=== PATIENT | male | born 1985 | race African-American/Black ===

== ENCOUNTER 2020-10-01 17:25 | Emergency (ER) | payer BC ==
[2020-10-01 17:36] VITALS: BP 121/69; PULSE 73; RESP 20; TEMP 98
[2020-10-01] MEDS ORDERED: IBUPROFEN 800 MG TAB PO STA (17:58)
[2020-10-01] MEDS ORDERED: FAMOTIDINE 20 MG TAB PO STA (17:58)
--- NOTE | 2020-10-01 18:10 | ED ---
Headache HPI - General Chief Complaint: Headache Stated Complaint: headache Source: patient, RN notes reviewed, old records reviewed Mode of arrival: ambulatory Limitations: no limitations - History of Present Illness Initial Comments: 34-year-old black male patient, well-appearing alert and oriented 4, presents to the emergency room with complaints of a frontal sinus headache since yesterday. Patient states that his ALLERGIES have been really bad and he was outside in the heat yesterday while neighbors were farming and today he's had increasing sinus pressure and pain. He denies any fevers. No nausea vomiting or diarrhea. Patient states that this is just like his previous sinus headaches however he has taken Claritin and Tylenol with no relief. Patient states he did get some relief after taking a nap. Patient smokes less than a quarter pack a day. He has an appointment with his primary care doctor Dr. Shaikh tomorrow. this is not the worst headache of his life. MD Complaint: headache -: days(s) (1) Onset Description: gradual Location: frontal Severity scale (1-10): 7 Quality: full (Pressure), similar to previous headaches (Sinus headache from ALLERGIES) Consistency: constant Improves With: rest Worsens With: other (Wearing his mask) Treatments Prior to Arrival: other (Claritin and Tylenol) - Related Data Previous Rx's Medication Instructions Recorded Cetirizine HCl [Zyrtec] 10 mg PO DAILY 30 Days #30 tab 10/01/20 Allergies Allergy/AdvReac Type Severity Reaction Status Date / Time No Known Allergies Allergy Verified 10/01/20 17:36 Review of Systems ROS Statement: Those systems with pertinent positive or pertinent negative responses have been documented in the HPI. ROS Other: All systems not noted in ROS Statement are negative. Past Medical History Past Medical History: No Reported History History of Any Multi-Drug Resistant Organisms: None Reported Past Surgical History: No Surgical Hx Reported Past Psychological History: No Psychological Hx Reported Smoking Status: Current every day smoker Past Alcohol Use History: Occasional Past Drug Use History: Marijuana General Exam Limitations: no limitations General appearance: alert, in no apparent distress Head exam: Present: atraumatic, normocephalic, normal inspection Expanded Head exam: Absent: tenderness of temporal artery, CSF rhinorrhea, CSF otorrhea Eye exam: Present: normal appearance, PERRL, EOMI. Absent: scleral icterus, conjunctival injection, nystagmus, periorbital swelling, periorbital tenderness Pupils: Present: normal accommodation ENT exam: Present: normal exam, normal oropharynx, mucous membranes moist, TM's normal bilaterally (Evidence of previous myringotomy tube), normal external ear exam Neck exam: Present: normal inspection, full ROM. Absent: tenderness, meningismus, lymphadenopathy, thyromegaly Respiratory exam: Present: normal lung sounds bilaterally. Absent: respiratory distress, wheezes, rales, rhonchi, stridor, chest wall tenderness, accessory muscle use, decreased breath sounds, prolonged expiratory Cardiovascular Exam: Present: regular rate, normal rhythm, normal heart sounds. Absent: systolic murmur, diastolic murmur, rubs, gallop, clicks GI/Abdominal exam: Present: soft, normal bowel sounds. Absent: distended, tenderness, guarding, rebound, rigid Extremities exam: Present: normal inspection, full ROM, normal capillary refill. Absent: tenderness, pedal edema, joint swelling, calf tenderness Back exam: Present: normal inspection, full ROM. Absent: tenderness, CVA tenderness (R), CVA tenderness (L), muscle spasm, paraspinal tenderness, vertebral tenderness, rash noted Neurological exam: Present: alert, oriented X3, CN II-XII intact Psychiatric exam: Present: normal affect, normal mood Skin exam: Present: warm, dry, intact, normal color. Absent: rash, cyanosis, diaphoretic, erythema, petechiae, pallor, mottled Course Vital Signs 10/01/20 17:34 Temperature 98.0 F Pulse Rate 73 Respiratory 20 Rate Blood Pressure 121/69 O2 Sat by Pulse 96 Oximetry Medical Decision Making - Medical Decision Making The patient presents with headache similar to his previous sinus headaches. He is complaining of frontal and ethmoid sinus pain and pressure. He states he takes Claritin daily however after being outside all day yesterday in the heat he is not getting the relief. He states that he took a Tylenol and a half today he believes that that did help a little bit but he still feels the pressure. Patient denies any sore throats, fever, cough or difficulty breathing. He has no visual disturbances. He denies any ear pressure or pain. He has appointment with his primary care Dr. Shaikh tomorrow. Patient offered IV fluids and Benadryl and refused states that he is well-hydrated. Patient offered a Toradol shot and states he does not want any injections. Patient agreed to take Motrin and Pepcid and to change his Claritin to Zyrtec to see if that makes a difference for him. Patient offered Flonase which he states he does not like. Patient requesting a work note for today which was provided. Case discussed with Dr. Silva and will discharge patient home to follow up with primary care doctor. Disposition Clinical Impression: Sinus headache, Environmental allergies Disposition: HOME SELF-CARE Condition: Good Instructions (If sedation given, give patient instructions): Acute Headache (ED) Prescriptions: Cetirizine HCl [Zyrtec] 10 mg PO DAILY 30 Days #30 tab Is patient prescribed a controlled substance at d/c from ED?: No Referrals: Rob Shaikh MD [Primary Care Provider] - 1-2 days Time of Disposition: 18:11
== END 2020-10-01 18:34 | disposition home or self-care (01) ==
LOC: EC 17:25
DX: R51.9 Headache, unspecified (principal); F12.90 Cannabis use, unspecified, uncomplicated; F17.200 Nicotine dependence, unspecified, uncomplicated; Z91.09 Other allergy status, other than to drugs and biological substances
CPT/HCPCS: 99283

== ENCOUNTER 2020-11-02 11:36 | Emergency (ER) | payer BC ==
[2020-11-02 11:40] VITALS: BP 140/91; PULSE 93; RESP 18; TEMP 98.3
--- NOTE | 2020-11-02 11:57 | ED ---
General Adult HPI - General Chief complaint: Back Pain/Injury Stated complaint: back injury Time Seen by Provider: 11/02/20 11:44 Source: patient Mode of arrival: wheelchair Limitations: no limitations - History of Present Illness Initial comments: 35-year-old male presents to the emergency room for chief complaint of back pain. Patient and his significant other are moving. Patient was lifting heavy objects yesterday. Patient went to lift and felt a sudden pain in his back like it spasmed up. Patient states he laid down for a little bit but then proceeded to go to work. 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 After he went to bed and woke up this morning his pain had worsened. Patient denies any bladder or bowel changes, saddle anesthesia, weakness of the legs, or fevers. Patient denies any IV drug abuse.Patient has no other complaints at this time including shortness of breath, chest pain, abdominal pain, nausea or vomiting, headache, or visual changes. - Related Data Home Medications Medication Instructions Recorded Confirmed Montelukast [Singulair] 10 mg PO DAILY 11/02/20 11/02/20 Previous Rx's Medication Instructions Recorded Cetirizine HCl [Zyrtec] 10 mg PO DAILY 30 Days #30 tab 10/01/20 Cyclobenzaprine [Flexeril] 10 mg PO TID #14 tab 11/02/20 Ibuprofen [Motrin] 600 mg PO Q6HR PRN #20 tab 11/02/20 Allergies Allergy/AdvReac Type Severity Reaction Status Date / Time No Known Allergies Allergy Verified 11/02/20 12:58 Review of Systems ROS Statement: Those systems with pertinent positive or pertinent negative responses have been documented in the HPI. ROS Other: All systems not noted in ROS Statement are negative. Past Medical History Past Medical History: No Reported History History of Any Multi-Drug Resistant Organisms: None Reported Past Surgical History: No Surgical Hx Reported Past Psychological History: No Psychological Hx Reported Smoking Status: Current every day smoker Past Alcohol Use History: Occasional Past Drug Use History: Marijuana General Exam Limitations: no limitations General appearance: alert, in no apparent distress Head exam: Present: atraumatic, normocephalic, normal inspection Eye exam: Present: normal appearance, PERRL, EOMI. Absent: scleral icterus, conjunctival injection, periorbital swelling ENT exam: Present: normal exam, mucous membranes moist Neck exam: Present: normal inspection, full ROM. Absent: tenderness, meningismus Respiratory exam: Present: normal lung sounds bilaterally. Absent: respiratory distress, wheezes Cardiovascular Exam: Present: regular rate, normal rhythm, normal heart sounds GI/Abdominal exam: Present: soft, normal bowel sounds. Absent: distended, tenderness, guarding, rebound, rigid Back exam: Absent: full ROM Course Vital Signs 11/02/20 11:37 Temperature 98.3 F Pulse Rate 93 Respiratory 18 Rate Blood Pressure 140/91 O2 Sat by Pulse 99 Oximetry Medical Decision Making - Medical Decision Making Patient presents for back pain after lifting yesterday. No red flag symptoms. Patient was given Toradol and Norflex, requesting discharge. He will follow up with orthopedics and primary care. He will return here for any worsening symptoms. Disposition Clinical Impression: Back pain Disposition: HOME SELF-CARE Condition: Good Instructions (If sedation given, give patient instructions): Acute Low Back Pain (ED) Additional Instructions: Please take Motrin for pain. If pain is severe take Tylenol 3. Take Flexeril as well as needed. Do not drive or operate machinery while taking Tylenol 3 or Flexeril. Follow-up with orthopedics and primary care. Return for any worsening symptoms such as bladder or bowel changes, numbness of the greater buttock, weakness of the legs, or fevers. Prescriptions: Cyclobenzaprine [Flexeril] 10 mg PO TID #14 tab Ibuprofen [Motrin] 600 mg PO Q6HR PRN #20 tab PRN Reason: Pain Is patient prescribed a controlled substance at d/c from ED?: No Referrals: Rob Shaikh MD [Primary Care Provider] - 1-2 days Michael Frank DO [Doctor of Osteopathic Medicine] - 1-2 days Time of Disposition: 13:11
[2020-11-02] MEDS: KETOROLAC 15 MG/ML 1 ML VIAL IM STA (12:00)
[2020-11-02] MEDS: ORPHENADRINE 30 MG/ML 2 ML VIAL IM STA (12:01)
[2020-11-02] MEDS: ACET/COD 300 MG/30 MG STARTER PACK 6 TAB BTL PO STA (13:19)
== END 2020-11-02 13:20 | disposition home or self-care (01) ==
LOC: EC 11:36
DX: M54.9 Dorsalgia, unspecified (principal); F17.200 Nicotine dependence, unspecified, uncomplicated; F12.90 Cannabis use, unspecified, uncomplicated; Z79.1 Long term (current) use of non-steroidal anti-inflammatories (NSAID)
CPT/HCPCS: 96372; 99283

== ENCOUNTER 2020-12-28 08:31 | Emergency (ER) | payer BC ==
[2020-12-28 08:42] VITALS: PULSE 86; RESP 18; TEMP 98.3
[2020-12-28] MEDS ORDERED: IBUPROFEN 600 MG TAB PO STA (08:47)
--- NOTE | 2020-12-28 09:27 | XR ---
EXAMINATION TYPE: XR chest 2V DATE OF EXAM: 12/28/2020 COMPARISON: NONE HISTORY: Cough. TECHNIQUE: Frontal and lateral views of the chest are obtained. FINDINGS: There is no focal air space opacity, pleural effusion, or pneumothorax seen. The cardiac silhouette size is within normal limits. The osseous structures are intact. IMPRESSION: No acute pulmonary process.
--- NOTE | 2020-12-28 09:44 | ED ---
Headache HPI - General Chief Complaint: Headache Stated Complaint: headache Time Seen by Provider: 12/28/20 08:42 Source: patient, RN notes reviewed Mode of arrival: ambulatory Limitations: no limitations - History of Present Illness Initial Comments: Patient is a 35-year-old male that presents to emergency department complaining of nasal congestion and sinus headache. He notes that he usually takes Zyrtec and helped relieve the pain. He notes that he ran out of Zyrtec a [facility] emergency department to get medication refill. Patient stated that he would much rather not get the Covid test for any testing done at this time. He was otherwise well-appearing 35-year-old male with no apparent distress or pain. He denied any chest pain shortness of breath headache nausea vomiting diarrhea constipation fever fatigue chills. - Related Data Home Medications Medication Instructions Recorded Confirmed Montelukast [Singulair] 10 mg PO DAILY 11/02/20 11/02/20 Previous Rx's Medication Instructions Recorded Cetirizine HCl [Zyrtec] 10 mg PO DAILY 30 Days #30 tab 10/01/20 Cyclobenzaprine [Flexeril] 10 mg PO TID #14 tab 11/02/20 Ibuprofen [Motrin] 600 mg PO Q6HR PRN #20 tab 11/02/20 Cetirizine HCl [Zyrtec] 10 mg PO DAILY 10 Days #10 tab 12/28/20 Allergies Allergy/AdvReac Type Severity Reaction Status Date / Time No Known Allergies Allergy Verified 12/28/20 08:42 Review of Systems ROS Statement: Those systems with pertinent positive or pertinent negative responses have been documented in the HPI. ROS Other: All systems not noted in ROS Statement are negative. Past Medical History Past Medical History: No Reported History History of Any Multi-Drug Resistant Organisms: None Reported Past Surgical History: No Surgical Hx Reported Past Psychological History: No Psychological Hx Reported Smoking Status: Current every day smoker Past Alcohol Use History: None Reported Past Drug Use History: Marijuana General Exam Limitations: no limitations General appearance: alert, in no apparent distress, obese, other (Minimal nasal congestion) Head exam: Present: atraumatic, normocephalic, normal inspection Eye exam: Present: normal appearance, PERRL, EOMI. Absent: scleral icterus, conjunctival injection, periorbital swelling ENT exam: Present: normal exam, mucous membranes moist, other (Clear nasal drainage) Neck exam: Present: normal inspection Respiratory exam: Present: normal lung sounds bilaterally. Absent: respiratory distress, wheezes, rales, rhonchi, stridor Cardiovascular Exam: Present: regular rate, normal rhythm, normal heart sounds. Absent: systolic murmur, diastolic murmur, rubs, gallop, clicks GI/Abdominal exam: Present: soft, normal bowel sounds. Absent: distended, tenderness, guarding, rebound, rigid Extremities exam: Present: normal inspection, full ROM, normal capillary refill. Absent: tenderness, pedal edema, joint swelling, calf tenderness Neurological exam: Present: alert, oriented X3 Psychiatric exam: Present: normal affect, normal mood Skin exam: Present: warm, dry, intact, normal color. Absent: rash Course Vital Signs 12/28/20 08:39 Temperature 98.3 F Pulse Rate 86 Respiratory 18 Rate Blood Pressure 109/76 O2 Sat by Pulse 98 Oximetry Medical Decision Making - Medical Decision Making 35-year-old male with a sinus headache and nasal congestion requesting certain refill. Over test, chest x-ray, 600 mg of Motrin ordered. Patient refused Covid swab and initially declined chest x-ray as he only wanted medication to help his headache. Chest x-ray no acute pulmonary process. Patient will be sent a short supply of Zyrtec to his pharmacy. Discussed with Dr. Sanz, patient discharge home with work note given - Radiology Data Radiology results: report reviewed, image reviewed Chest x-ray: No acute pulmonary process. Disposition Clinical Impression: Nasal drainage, Sinus headache Disposition: HOME SELF-CARE Condition: Stable Instructions (If sedation given, give patient instructions): Acute Headache (ED) Additional Instructions: Please return to the Emergency Department if symptoms worsen or any other concerns. Follow-up with primary care 1-2 days. Take Zyrtec as prescribed. Take Tylenol and Motrin alternating them every 3 hours for pain control. Prescriptions: Cetirizine HCl [Zyrtec] 10 mg PO DAILY 10 Days #10 tab Is patient prescribed a controlled substance at d/c from ED?: No Referrals: Rob Shaikh MD [Primary Care Provider] - 1-2 days Time of Disposition: 10:07
[2020-12-28 11:09] VITALS: BP 126/81
== END 2020-12-28 10:40 | disposition home or self-care (01) ==
LOC: EC 08:31
DX: R51.9 Headache, unspecified (principal); R09.81 Nasal congestion; F17.200 Nicotine dependence, unspecified, uncomplicated; F12.90 Cannabis use, unspecified, uncomplicated; Z79.51 Long term (current) use of inhaled steroids; Z79.1 Long term (current) use of non-steroidal anti-inflammatories (NSAID); Z79.899 Other long term (current) drug therapy
CPT/HCPCS: 71046; 99284

== ENCOUNTER 2024-06-06 15:42 | Emergency (ER) | payer BC ==
--- NOTE | 2024-06-06 17:04 | ED ---
Headache HPI - General Chief Complaint: Headache Stated Complaint: Headache Time Seen by Provider: 06/06/24 16:48 Source: patient, RN notes reviewed Mode of arrival: ambulatory Limitations: no limitations - History of Present Illness Initial Comments: 38-year-old male with history of migraines presenting for migraine since yesterday. 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 Describes a throbbing pain in the frontal portion of the head. Feels similar in quality to previous migraines. This is not the worst headache of his life. States he usually takes caffeine pills for his migraines however is out of this medication. He tried taking 2 Tylenol earlier today with little relief. Denies head injury or trauma. Denies flulike symptoms. Denies vision changes, nausea, or vomiting. - Related Data Home Medications Medication Instructions Recorded Confirmed Montelukast [Singulair] 10 mg PO DAILY 11/02/20 11/02/20 Previous Rx's Medication Instructions Recorded Cetirizine HCl [Zyrtec] 10 mg PO DAILY 30 Days #30 tab 10/01/20 Cyclobenzaprine [Flexeril] 10 mg PO TID #14 tab 11/02/20 Ibuprofen [Motrin] 600 mg PO Q6HR PRN #20 tab 11/02/20 Cetirizine HCl [Zyrtec] 10 mg PO DAILY 10 Days #10 tab 12/28/20 Ketorolac [Toradol] 10 mg PO Q8HR #15 tab 06/06/24 Metoclopramide [Reglan] 10 mg PO TID PRN #15 tab 06/06/24 Allergies Allergy/AdvReac Type Severity Reaction Status Date / Time No Known Allergies Allergy Verified 12/28/20 08:42 Review of Systems ROS Statement: Those systems with pertinent positive or pertinent negative responses have been documented in the HPI. ROS Other: All systems not noted in ROS Statement are negative. Past Medical History Past Medical History: No Reported History History of Any Multi-Drug Resistant Organisms: None Reported Past Surgical History: No Surgical Hx Reported Past Psychological History: No Psychological Hx Reported Smoking Status: Current every day smoker Past Alcohol Use History: None Reported, Rare Past Drug Use History: Marijuana General Exam Limitations: no limitations General appearance: alert, in no apparent distress Head exam: Present: atraumatic, normocephalic, normal inspection Eye exam: Present: normal appearance, PERRL, EOMI. Absent: scleral icterus, conjunctival injection, periorbital swelling ENT exam: Present: normal exam, normal oropharynx, mucous membranes moist Neurological exam: Present: alert, oriented X3, CN II-XII intact Psychiatric exam: Present: normal affect, normal mood Skin exam: Present: warm, dry, intact, normal color. Absent: rash Course Vital Signs 06/06/24 16:08 Temperature 98.3 F Pulse Rate 101 H Respiratory 18 Rate Blood Pressure 112/78 O2 Sat by Pulse 100 Oximetry Medical Decision Making - Medical Decision Making Was pt. sent in by a medical professional or institution (, PA, MATERIAL RECLAIMER, urgent care, hospital, or halfway...) When possible be specific @ -No Did you speak to anyone other than the patient for history (EMS, parent, family, police, friend...)? What history was obtained from this source @ -No Did you review nursing and triage notes (agree or disagree)? Why? @ -I reviewed and agree with nursing and triage notes Were old charts reviewed (outside hosp., previous admission, EMS record, old EKG, old radiological studies, urgent care reports/EKG's, halfway records)? Report findings @ -No old charts were reviewed Differential Diagnosis (chest pain, altered mental status, abdominal pain women, abdominal pain men, vaginal bleeding, weakness, fever, dyspnea, syncope, headache, dizziness, GI bleed, back pain, seizure, CVA, palpatations, mental health, musculoskeletal)? @ -Differential Headache: Migraine, tension, cluster, carbon monoxide, central venous thrombosis, pension karma temporal arteritis, acute closure glaucoma, intercranial hemorrhage, mastoiditis, sinusitis, head injury, this is not meant to be an all-inclusive list. EKG interpreted by me (3pts min.). @ -None X-rays interpreted by me (1pt min.). @ -None done CT interpreted by me (1pt min.). @ -None done U/S interpreted by me (1pt. min.). @ -None done What testing was considered but not performed or refused? (CT, X-rays, U/S, labs)? Why? @ -CT deferred as patient states this feels similar to previous migraines and is not the worst headache of his life What meds were considered but not given or refused? Why? @ -Offered IV fluids and IV medications however patient declines IV and prefers IM Did you discuss the management of the patient with other professionals (professionals i.e. , PA, MATERIAL RECLAIMER, lab, RT, psych nurse, social services, manager private, teacher, aoc plans intelligence officer, case briefer)? Give summary @ -No Was smoking cessation discussed for >3mins.? @ -No Was critical care preformed (if so, how long)? @ -No Were there social determinants of health that impacted care today? How? (Homelessness, low income, unemployed, alcoholism, drug addiction, transportation, low edu. Level, literacy, decrease access to med. care, [facility], rehab)? @ -No Was there de-escalation of care discussed even if they declined (Discuss DNR or withdrawal of care, Hospice)? DNR status @ -No What co-morbidities impacted this encounter? (DM, HTN, Smoking, COPD, CAD, Cancer, CVA, ARF, Chemo, Hep., AIDS, mental health diagnosis, sleep apnea, morbid obesity)? @ -None Was patient admitted / discharged? Hospital course, mention meds given and route, prescriptions, significant lab abnormalities, going to OR and other pertinent info. @ -Discharge. 38-year-old male with history of migraines presenting for migraine since yesterday. No red flag symptoms. Similar in quality to previous migraines. Neuro examination unremarkable. Patient was provided with migraine cocktail and reports significant improvement of symptoms and feels stable for discharge. Provided outpatient prescription for Toradol and Reglan. Discussed appropriate return precautions and follow-up care. Case was discussed with my ED attending Dr. Parekh. Undiagnosed new problem with uncertain prognosis? @ -No Drug Therapy requiring intensive monitoring for toxicity (Heparin, Nitro, Insulin, Cardizem)? @ -No Were any procedures done? @ -No Diagnosis/symptom? @ -Migraine headaches Acute, or Chronic, or Acute on Chronic? @ -Acute Uncomplicated (without systemic symptoms) or Complicated (systemic symptoms)? @ -Uncomplicated Side effects of treatment? @ -No Exacerbation, Progression, or Severe Exacerbation? @ -No Poses a threat to life or bodily function? How? (Chest pain, [place], [place], pneumonia, PE, COPD, DKA, ARF, appy, cholecystitis, CVA, Diverticulitis, Homicidal, Suicidal, threat to staff... and all critical care pts) @ -No at this timet Disposition Clinical Impression: Migraine Disposition: HOME SELF-CARE Condition: Stable Instructions (If sedation given, give patient instructions): Migraine Headache (ED) Additional Instructions: Take Toradol and Reglan as needed for headache. You may also take ov [id number] Benadryl. Please return to the Emergency Department if symptoms worsen or any other concerns. Prescriptions: Metoclopramide [Reglan] 10 mg PO TID PRN #15 tab PRN Reason: Nausea Ketorolac [Toradol] 10 mg PO Q8HR #15 tab Is patient prescribed a controlled substance at d/c from ED?: No Referrals: Rob Shaikh MD [Primary Care Provider] - 1-2 days Time of Disposition: 18:04
[2024-06-06] MEDS: diphenhydrAMINE 50 MG/ML 1 ML VIAL IM STA (17:18)
[2024-06-06] MEDS: KETOROLAC 15 MG/ML 1 ML VIAL IM STA (17:19)
[2024-06-06] MEDS: METOCLOPRAMIDE 5 MG/ML 2 ML VIAL IM STA (17:28)
[2024-06-06 18:41] VITALS: BP 119/81; PULSE 89; RESP 16; TEMP 97.9
== END 2024-06-06 18:40 | disposition home or self-care (01) ==
LOC: EC 15:42
DX: G43.909 Migraine, unspecified, not intractable, without status migrainosus (principal); F17.200 Nicotine dependence, unspecified, uncomplicated
CPT/HCPCS: 99283; 96372 ×3; J1200; J2765; J1885